=== PATIENT | female | born 1995 | race Caucasian/White ===

== ENCOUNTER → 2021-04-28 08:32 | Outpatient (BNVA) | payer BC, SELFPAY | PROVIDERS: PCP Family Medicine; Visit Provider Nurse Practitioner Family ==

== ENCOUNTER 2021-10-20 14:30 | Outpatient (REF) | payer BC, SELFPAY ==
--- NOTE | ~2021-10-20 | MR_ITS ---
EXAMINATION: MR BRAIN WITHOUT AND WITH CONTRAST CLINICAL INFORMATION: Headache. Other specified endocrine disorders. COMPARISON: None available. TECHNIQUE: Multiplanar, multisequence imaging of the brain was performed before and after the intravenous administration of 3 mL of Gadavist. FINDINGS: There is no acute infarction, mass, hemorrhage, or extra-axial collection. No abnormal or unexpected intracranial enhancement is seen. The ventricles, sulci, and basilar cisterns are normal in size and configuration. The pituitary gland demonstrates normal enhancement. A tiny pars intermedia there is mild hypoenhancement within the left aspect of the pituitary gland measuring approximately 7 mm seen on series 9 image 14/ which could represent a microadenoma. Infundibulum demonstrates normal thickness and morphology and inserts in the midline. The cavernous sinuses are unremarkable. The flow voids of the major intracranial arteries appear intact. The bones and extracranial soft tissues are within normal limits. MR/MR head/brain wo/w con IMPRESSION: Focal hypoenhancement in the left aspect of the pituitary gland measuring 7 mm which could represent a microadenoma. No acute intracranial abnormality.
== END 2021-10-20 14:31 | disposition home or self-care (01) ==
LOC: HO.MRI 14:30
PROVIDERS: Visit Provider Nurse Practitioner Family
DX: R51.9 Headache, unspecified (principal); F95.2 Tourette's disorder; N64.3 Galactorrhea not associated with childbirth
CPT/HCPCS: 70553; A9585

== ENCOUNTER 2021-12-03 08:04 | Outpatient (REF) | payer BC, SELFPAY ==
[2021-12-03 09:17] LABS: Anion Gap 15 (12-20); Blood Urea Nitrogen 11 mg/dL (9-16); Calcium 9.6 mg/dL (8.4-10.2); Carbon Dioxide 27 mmol/L (22-29); Chloride 103 mmol/L (96-108); Estimated Glomerular Filt Rate > 60; Glucose Random 89 mg/dL (60-115); Potassium 4.6 mmol/L (3.3-5.1); Sodium 140 mmol/L (135-145)
[2021-12-03 09:41] LABS: Free T4 (Free Thyroxine) 0.92 ng/dL (0.71-1.85); HCG Quantitative < 2 mIU/mL; Thyroid Stimulating Hormone 1.62 uIU/mL (0.32-4.0)
[2021-12-07 03:57] LABS: DHEA Sulfate 227 mcg/dL (14-349)
[2021-12-13 07:32] LABS: Testosterone, Free 3.5 pg/mL (0.1-6.4); Testosterone, Total 44 ng/dL (2-45)
== END 2021-12-03 08:05 | disposition home or self-care (01) ==
LOC: HO.LAB 08:04
PROVIDERS: PCP Family Medicine; Visit Provider Internal Medicine Endocrinology, Diabetes & Metabolism
DX: D35.2 Benign neoplasm of pituitary gland (principal); L65.9 Nonscarring hair loss, unspecified
CPT/HCPCS: 36415; 80048; 82627; 84146; 84402; 84403; 84439; 84443; 84702

== ENCOUNTER 2022-01-27 10:34 | Outpatient (REF) | payer BC, SELFPAY ==
[2022-01-27 11:30] LABS: Creatinine, mg/dL 83.07
[2022-01-27 11:34] LABS: Creatinine, 24Hr Urine 1.5 G/Day (1.0-2.0); Total Volume 24 Hour Urine 1850 mL
[2022-02-05 19:35] LABS: Cortisol Free, 24 Hr Urine 24.3 mcg/24 h (4.0-50.0); Creatinine, 24 Hr Urine 1.54 g/24 h (0.50-2.15); Total Volume, 24 Hr Urine 1850 mL
== END 2022-01-27 10:35 | disposition home or self-care (01) ==
LOC: HO.LNP 10:34
PROVIDERS: Visit Provider Internal Medicine Endocrinology, Diabetes & Metabolism
DX: D35.2 Benign neoplasm of pituitary gland (principal)
CPT/HCPCS: 82530; 82570

== ENCOUNTER 2022-03-21 17:55 | Outpatient (REF) | payer BC, SELFPAY ==
--- NOTE | ~2022-03-21 | MR_ITS ---
EXAMINATION: MR BRAIN WITHOUT AND WITH CONTRAST CLINICAL INFORMATION: Benign neoplasm of pituitary gland. COMPARISON: MRI scan of the brain 10/20/2021. TECHNIQUE: Multiplanar, multisequence MRI of the brain was obtained before and after the intravenous administration of 3.5 mL Gadavist. FINDINGS: The study redemonstrates a 7 mm area of decreased differential enhancement in the left aspect of the anterior lobe of the pituitary, similar compared to prior imaging (image 12/18, sequence 9). There is also a 1 mm pars intermedia cyst, unchanged. The infundibulum is midline. The cavernous sinuses opacify symmetrically. The internal carotid artery flow-voids are maintained. The optic chiasm is normal. No suprasellar soft tissue abnormality is seen. The sella turcica is normal. No diffusion abnormalities are identified to suggest an acute or subacute infarct. No mass effect or midline shift is seen. The ventricles and sulci are normal in size. Brain parenchymal signal is unremarkable. No extra-axial fluid collections are seen. The brainstem appears normal. On postcontrast imaging, there is no abnormal parenchymal or leptomeningeal enhancement. There is no evidence of hemorrhage. The cerebellar tonsils have normal contour and position, and the craniocervical junction appears normal. Marrow signal and midline structures are normal. The major intracranial flow-voids at the level of the [place] are preserved. The dural venous sinus flow-voids are maintained. The mastoid air cells are well-aerated. There are small retention cysts in the left axillary sinus. MR/MR head/brain wo/w con IMPRESSION: 1. The study redemonstrates an area of decreased differentiation enhancement in the left aspect of the anterior lobe of the pituitary gland, which may be consistent with a microadenoma. Correlate with hormonal profile. 2. There are no acute bleeds or infarcts. No other masses or areas of abnormal enhancement are demonstrated.
== END 2022-03-21 17:56 | disposition home or self-care (01) ==
LOC: HO.MRI 17:55
PROVIDERS: PCP Family Medicine; Visit Provider Internal Medicine Endocrinology, Diabetes & Metabolism
DX: D35.2 Benign neoplasm of pituitary gland (principal)
CPT/HCPCS: 70553